=== PATIENT | male | born 1935 | race Caucasian/White ===

== ENCOUNTER → 2018-01-17 | Day surgery (SDC) | payer OTHER, MEDICARE ==
[~2018-01-17] VITALS: Ht 165.1 cm; Wt 68.0 kg
[~2018-01-17] MED LIST: ACETAMINOPHEN500 M4 PO; AMIODARONE HCL200 M1 PO; AMLODIPINE BESYL5 M1 PO; B-121000 MC3 PO; BREO ELLIPTA 21 EACH INH; CLOPIDOGREL75 M1 PO; FLOMAX0.4 M1 PO; HUMALOG100 UNIT/2 SC; LASIX40 M1 PO; LEVEMIR100 UNIT/1 SC; METOPROLOL SUCC25 M1 PO; MULTIVITAMINS1 EAC9 PO; PANTOPRAZOLE SO40 M1 PO; SIMVASTATIN20 M2 PO
--- NOTE | 2018-01-17 10:01 | Operative Report ---
Operative/Inv Procedure Report Surgery Date: 01/17/18 Name of Procedure: Complex Cataract extraction with intraocular lens implantation left eye Pre-Operative Diagnosis: Age-related cataract and abnormal pupil left eye Post-Operative Diagnosis: Same Estimated Blood Loss: none Surgeon/Anesthesiology Physician: Vijay PATRICK,Homer Seymour Anesthesia: local monitored anesthesi Complications: None Operative/Procedure Note Note: The risks, benefits, and alternatives to surgery were discussed at length with the patient. Informed consent was obtained. The patient was brought to the operating room where the left eye was prepped and draped in the normal sterile fashion. A speculum was placed on the left eye with good exposure. A stab incision was made using a paracentesis blade. Intracameral lidocaine was placed. Viscoelastic was used to form the anterior chamber. A Malyugin ring was placed to expand the pupil with good exposure.A clear corneal incision was made using keratome blade. A continuous curvilinear capsulorrhexis was made using a cystotome needle followed by Utrata forceps. There was no extension of the rhexis. Hydrodissection was performed using balanced salt solution. The cataract was removed using a stop and chop technique. Residual cortex was removed using coaxial irrigation and aspiration. The capsule was polished using irrigation and aspiration and the posterior capsule was cleaned using a balanced salt solution jet. There was no residual lens material inside the eye. The capsular bag was reformed using viscoelastic. An intraocular lens PCBOO of power 25.0 was verified and confirmed. It was loaded into an injector and injected into the eye. The lens was placed entirely within the capsular bag. Viscoelastic was evacuated using irrigation and aspiration. The wounds were stromally hydrated and the eye filled to physiologic pressure using balanced salt solution. Intracameral cefuroxime was placed. Speculum was removed and a shield was placed on the eye. The patient was brought to the recovery area without incident. Instructions were given to follow-up the next day for routine postoperative care.
== END ==
LOC: STS 02:26
DX: H25.89 Other age-related cataract (principal); H21.562 Pupillary abnormality, left eye; E11.9 Type 2 diabetes mellitus without complications; Z79.4 Long term (current) use of insulin; I10 Essential (primary) hypertension; I25.10 Atherosclerotic heart disease of native coronary artery without angina pectoris; I25.2 Old myocardial infarction; G47.33 Obstructive sleep apnea (adult) (pediatric)
CPT/HCPCS: J2250; V2632

== ENCOUNTER → 2018-02-14 | Day surgery (SDC) | payer OTHER, MEDICARE ==
[~2018-02-14] VITALS: Ht 165.1 cm; Wt 68.0 kg
--- NOTE | 2018-02-14 12:30 | Operative Report ---
Operative/Inv Procedure Report Surgery Date: 02/14/18 Name of Procedure: Cataract extraction with intraocular lens implantation right eye Pre-Operative Diagnosis: Age-related cataract right eye Post-Operative Diagnosis: Same Estimated Blood Loss: none Surgeon/Ortho Assistant: Vijay PATRICK,Homer Seymour Anesthesia: local monitored anesthesi Complications: None Operative/Procedure Note Note: Preoperatively the patient was noted to have 20/60 vision in the right eye . The risks, benefits, and alternatives to surgery were discussed at length with the patient. Informed consent was obtained. The patient was brought to the operating room where the right eye was prepped and draped in the normal sterile fashion. A speculum was placed on the right eye with good exposure. A stab incision was made using a paracentesis blade. Intracameral lidocaine was placed. Viscoelastic was used to form the anterior chamber. A clear corneal incision was made using keratome blade. A continuous curvilinear capsulorrhexis was made using a cystotome needle followed by Utrata forceps. There was no extension of the rhexis. Hydrodissection was performed using balanced salt solution. The cataract was removed using a stop and chop technique. Residual cortex was removed using coaxial irrigation and aspiration. The capsule was polished using irrigation and aspiration and the posterior capsule was cleaned using a balanced salt solution jet. There was no residual lens material inside the eye. The capsular bag was reformed using viscoelastic. An intraocular lens PCBOO of power 25.0 was verified and confirmed. It was loaded into an injector and injected into the eye. The lens was placed entirely within the capsular bag. Viscoelastic was evacuated using irrigation and aspiration. The wounds were stromally hydrated and the eye filled to physiologic pressure using balanced salt solution. Intracameral cefuroxime was placed. Speculum was removed and a shield was placed on the eye. The patient was brought to the recovery area without incident. Instructions were given to follow-up the next day for routine postoperative care.
== END ==
LOC: STS 02:30
DX: H25.9 Unspecified age-related cataract (principal); E11.9 Type 2 diabetes mellitus without complications; Z79.4 Long term (current) use of insulin; I10 Essential (primary) hypertension; Z95.0 Presence of cardiac pacemaker; G47.33 Obstructive sleep apnea (adult) (pediatric)
CPT/HCPCS: J2250; V2632